=== PATIENT | female | born 1965 | race Caucasian/White ===

== ENCOUNTER → 2016-06-20 | Outpatient (CLI) | payer OTHER ==
[~2016-06-20] MED LIST: CALC-157 PO
--- NOTE | 2016-06-20 15:28 | RAD ---
Indication: Neck and peroneal pain. Time of exam 1335 hours. Femoral acetabular alignment is normal bilaterally. The femoral heads and necks are intact. No fractures are seen. Old fracture deformities of the pubic rami are noted. SI joints and symphysis are nonwidened. Impression: Chronic changes. No acute abnormality is detected.
== END | disposition home or self-care (01) ==
LOC: DXRAD 14:23
PROVIDERS: ATTEND Family Medicine
DX: R10.2 Pelvic and perineal pain (principal)
CPT/HCPCS: 72170

== ENCOUNTER → 2016-10-23 | Outpatient (CLI) | payer OTHER ==
[2016-10-23 06:39] LABS: BASO % 0 % (0-3); EOS # 0.1 x10^3/uL (0.0-0.7); EOS % 2 % (0-3); HEMATOCRIT 42.8 % (36.0-47.0); HEMOGLOBIN 14.7 g/dL (12.0-15.5); LYMPH # 1.5 x10^3/uL (1.0-4.8); LYMPH % 34 % (24-48); MEAN CORPUSCULAR HEMOGLOBIN 29 pg (25-35); MEAN CORPUSCULAR HGB CONC 34 g/dL (31-37); MEAN CORPUSCULAR VOLUME 85 fL (79-100); MONO # 0.4 x10^3/uL (0.0-1.1); MONO % 8 % (0-9); NEUT # 2.5 x10^3uL (1.8-7.7); NEUT % 56 % (31-73); PLATELET COUNT 226 x10^3/uL (140-400); RED BLOOD COUNT 5.06 x10^6/uL (3.50-5.40); RED CELL DISTRIBUTION WIDTH 13.3 % (11.5-14.5); WHITE BLOOD COUNT 4.5 x10^3/uL (4.0-11.0)
[2016-10-23 07:04] LABS: ALBUMIN 4.2 g/dL (3.4-5.0); ALBUMIN/GLOBULIN RATIO 1.1 (1.0-1.7); CALCIUM 9.3 mg/dL (8.5-10.1); CREATININE 0.8 mg/dL (0.6-1.0); POTASSIUM 3.8 mmol/L (3.5-5.1); TOTAL BILIRUBIN 0.8 mg/dL (0.2-1.0)
[2016-10-23 14:29] LABS: FREE T4 1.02 ng/dL (0.76-1.46); THYROID STIM HORMONE (TSH) 3.415 uIU/mL (0.358-3.740)
== END | disposition home or self-care (01) ==
LOC: LAB 06:14
PROVIDERS: ATTEND Family Medicine
DX: R53.83 Other fatigue (principal)
CPT/HCPCS: 36415; 80053; 80061; 82306; 84439; 84443; 85025

== ENCOUNTER → 2017-04-17 | Outpatient (CLI) | payer OTHER ==
--- NOTE | 2017-04-17 17:45 | RAD ---
Thyroid sonography Clinical indications: Multinodular goiter. Comparison: March 12, 2016. Findings: The longitudinal and AP and transverse dimensions of the right lobe are 6.7 cm and 2.5 cm and 3.0 cm respectively. There is a complex cystic and solid nodule within the lower pole which measures 2.9 cm in greatest dimension. It measured 2.3 cm in greatest dimension on the previous study. There is a complex cystic and solid nodule within the mid aspect which measures 1.5 cm in size. It measured 1.1 cm previously. The longitudinal and AP and transverse dimensions of the left lobe are 5.8 cm and 2.4 cm and 2.9 cm respectively. On the left side, a complex cystic and solid nodule is seen within the superior pole measuring 1.3 cm. It measured 1.4 cm previously. There is a solid nodule anteriorly within the mid aspect which measures 1.6 cm. It measured 1.5 cm previously. There is a solid nodule within the lower pole which measures 1.6 cm. It measured 1.6 cm previously. The isthmus measures 8 mm in thickness. There is a small solid nodule within the left side isthmus which measures 1.0 cm. It measured 0.8 cm previously. IMPRESSION: Multinodular goiter.
== END | disposition home or self-care (01) ==
LOC: US 07:58
PROVIDERS: ATTEND Surgery
DX: E04.2 Nontoxic multinodular goiter (principal)
CPT/HCPCS: 76536

== ENCOUNTER → 2017-09-12 | Outpatient (CLI) | payer OTHER ==
[~2017-09-12] MED LIST changes: +IOHEXOL 240 MG/ML 50ML VIAL. ONE
== END | disposition home or self-care (01) ==
LOC: PMG 10:43
PROVIDERS: ATTEND Family Medicine
DX: R53.82 Chronic fatigue, unspecified (principal); Z86.2 Personal history of diseases of the blood and blood-forming organs and certain disorders involving the immune mechanism
CPT/HCPCS: 84443; Q9966

== ENCOUNTER → 2017-09-12 | Outpatient (CLI) | payer OTHER ==
[~2017-09-12] MED LIST changes: -IOHEXOL 240 MG/ML 50ML VIAL. ONE; +IOHEXOL 240 MG/ML 50ML VIAL. PO ONE; +IOHEXOL 300 MG/ML 75 ML VIAL. IV ONE
--- NOTE | 2017-09-12 12:10 | RAD ---
EXAM: Abdomen and pelvis CT with intravenous contrast. HISTORY: Right lower quadrant pain. TECHNIQUE: Computed tomographic images of the abdomen and pelvis were obtained following the administration of 75 cc Isovue-370 intravenous contrast. Multiplanar reformatting was performed. *One or more of the following individualized dose reduction techniques were utilized for this examination: 1. Automated exposure control. 2. Adjustment of the mA and/or kV according to patient size. 3. Use of iterative reconstruction technique. COMPARISON: None. FINDINGS: Evaluation of the lower thorax demonstrates posterior dependent atelectasis. The heart is normal in size. No suspicious hepatic lesion is seen. The gallbladder, pancreas, spleen and adrenal glands are unremarkable. There is a 1.5 cm cyst within the upper pole the left kidney. There are prominent renal pelves, possibly due to pelviectasis or extrarenal pelvis. There is no evidence of obstructive uropathy. There is no appendicitis. There is no bowel obstruction. There is moderate colonic stool. There is rectal wall thickening likely due to relative under distention. There are a few distal colonic diverticula. The uterus is surgically absent. The bladder is unremarkable. There is no lymphadenopathy. There is a posterior left abdominal wall hernia containing fat. The hernia sac measures approximately 5.5 cm. There is a small fat-containing umbilical hernia. The hernia sac measures 2.3 cm. There is chronic fracture deformities involving the right sacrum and right L5 transverse process, anterior left iliac bone and bilateral pubic rami. There is mild scoliosis. There is no suspicious osseous lesion. IMPRESSION: 1. No acute abdominal or pelvic finding. 2. Small left renal cyst and suspected extrarenal pelves. There is no obstructive uropathy. 3. Distal colonic diverticulosis. There is moderate colonic stool. 4. Fat-containing posterior left ventral abdominal wall hernia and small fat-containing umbilical hernia. 5. Chronic pelvic fracture deformities. Electronically signed by: Tara Herron MD (09/12/2017 12:06 PM) [facility]
== END | disposition home or self-care (01) ==
LOC: CT 10:35
PROVIDERS: ATTEND Family Medicine
DX: K57.30 Diverticulosis of large intestine without perforation or abscess without bleeding (principal); K42.9 Umbilical hernia without obstruction or gangrene; M95.5 Acquired deformity of pelvis; M41.86 Other forms of scoliosis, lumbar region; Z86.2 Personal history of diseases of the blood and blood-forming organs and certain disorders involving the immune mechanism
CPT/HCPCS: 74177; Q9967

== ENCOUNTER → 2017-11-19 | Outpatient (CLI) | payer OTHER ==
[~2017-11-19] MED LIST changes: -IOHEXOL 240 MG/ML 50ML VIAL. PO ONE; -IOHEXOL 300 MG/ML 75 ML VIAL. IV ONE
== END | disposition home or self-care (01) ==
LOC: LAB 06:25
DX: E04.2 Nontoxic multinodular goiter (principal)
CPT/HCPCS: 36415; 86800

== ENCOUNTER → 2017-12-01 | Outpatient (CLI) | payer OTHER ==
--- NOTE | 2017-12-01 16:13 | RAD ---
Left elbow, 3 views, 12/01/2017: HISTORY: Elbow pain No fracture or dislocation is identified. No significant arthritic change is seen. No joint effusion is evident. IMPRESSION: No significant left elbow abnormality is detected. Electronically signed by: Logan Villarreal MD (12/01/2017 4:10 PM) [facility]
== END | disposition home or self-care (01) ==
LOC: RAD 14:51
PROVIDERS: ATTEND Neuromusculoskeletal Medicine & OMM
DX: S50.02XA Contusion of left elbow, initial encounter (principal); X58.XXXA Exposure to other specified factors, initial encounter; Y93.89 Activity, other specified; Y92.89 Other specified places as the place of occurrence of the external cause; Y99.2 Volunteer activity
CPT/HCPCS: 73080

== ENCOUNTER → 2018-08-28 | Outpatient (CLI) | payer OTHER ==
--- NOTE | 2018-08-28 16:28 | RAD ---
Indication: Increasing neck pain TECHNIQUE: 4 views of the cervical spine COMPARISON: None FINDINGS/ impression: Loss of normal cervical lordosis may be secondary to positioning or muscle spasm. Atlantoaxial joint interval is preserved. No compression deformity. Facet joints are in normal anatomic alignment with mild facet arthropathy. Prevertebral soft tissues are within normal limits. Mild degenerative disc disease at C3-C6. Visualized lung apices are clear. Electronically signed by: Harry Sen DO (08/28/2018 4:25 PM) [facility]
== END | disposition home or self-care (01) ==
LOC: PMG 15:57
PROVIDERS: ATTEND Family Medicine
DX: M50.31 Other cervical disc degeneration, high cervical region (principal); M12.88 Other specific arthropathies, not elsewhere classified, other specified site
CPT/HCPCS: 72040

== ENCOUNTER → 2018-08-31 | Outpatient (CLI) | payer OTHER ==
[2018-08-31 06:19] LABS: BASO % 0 % (0-3); EOS # 0.1 x10^3/uL (0.0-0.7); EOS % 2 % (0-3); HEMATOCRIT 42.6 % (36.0-47.0); HEMOGLOBIN 14.4 g/dL (12.0-15.5); LYMPH # 1.7 x10^3/uL (1.0-4.8); LYMPH % 32 % (24-48); MEAN CORPUSCULAR HEMOGLOBIN 29 pg (25-35); MEAN CORPUSCULAR HGB CONC 34 g/dL (31-37); MEAN CORPUSCULAR VOLUME 86 fL (79-100); MONO # 0.4 x10^3/uL (0.0-1.1); MONO % 8 % (0-9); NEUT # 3.1 x10^3uL (1.8-7.7); NEUT % 57 % (31-73); PLATELET COUNT 239 x10^3/uL (140-400); RED BLOOD COUNT 4.95 x10^6/uL (3.50-5.40); RED CELL DISTRIBUTION WIDTH 13.5 % (11.5-14.5); WHITE BLOOD COUNT 5.3 x10^3/uL (4.0-11.0)
[2018-08-31 06:43] LABS: ALBUMIN 3.9 g/dL (3.4-5.0); CALCIUM 9.2 mg/dL (8.5-10.1); CREATININE 0.8 mg/dL (0.6-1.0); GFR 74.5; TOTAL BILIRUBIN 0.6 mg/dL (0.2-1.0); TOTAL PROTEIN 7.7 g/dL (6.4-8.2)
[2018-08-31 06:44] LABS: POTASSIUM 3.8 mmol/L (3.5-5.1)
[2018-08-31 13:59] LABS: THYROID STIM HORMONE (TSH) 3.943 uIU/mL (0.358-3.740)
== END | disposition home or self-care (01) ==
LOC: LAB 05:54
PROVIDERS: ATTEND Family Medicine
DX: R53.82 Chronic fatigue, unspecified (principal)
CPT/HCPCS: 36415; 80053; 80061; 84443; 85025

== ENCOUNTER → 2019-02-25 | Outpatient (CLI) | payer OTHER ==
--- NOTE | 2019-02-25 16:27 | RAD ---
EXAM: Right elbow, 2 views. HISTORY: Pain. COMPARISON: 12/01/2017 FINDINGS: 2 views of the right elbow are obtained. There is no fracture, dislocation or subluxation. No elbow effusion is seen. IMPRESSION: No acute osseous finding. Electronically signed by: Tara Herron MD (02/25/2019 4:24 PM) [facility]
== END | disposition home or self-care (01) ==
LOC: DXRAD 16:02
PROVIDERS: ATTEND Family Medicine
DX: M25.521 Pain in right elbow (principal)
CPT/HCPCS: 73070

== ENCOUNTER → 2019-09-28 | Outpatient (CLI) | payer OTHER ==
[2019-09-28 16:46] LABS: BASO % 0 % (0-3); EOS # 0.1 x10^3/uL (0.0-0.7); EOS % 2 % (0-3); HEMATOCRIT 41.9 % (36.0-47.0); HEMOGLOBIN 14.1 g/dL (12.0-15.5); LYMPH % 32 % (24-48); MEAN CORPUSCULAR HEMOGLOBIN 29 pg (25-35); MEAN CORPUSCULAR HGB CONC 34 g/dL (31-37); MEAN CORPUSCULAR VOLUME 87 fL (79-100); MONO # 0.5 x10^3/uL (0.0-1.1); MONO % 8 % (0-9); NEUT # 3.5 x10^3uL (1.8-7.7); NEUT % 57 % (31-73); PLATELET COUNT 220 x10^3/uL (140-400); RED BLOOD COUNT 4.81 x10^6/uL (3.50-5.40); RED CELL DISTRIBUTION WIDTH 13.8 % (11.5-14.5); WHITE BLOOD COUNT 6.1 x10^3/uL (4.0-11.0)
[2019-09-28 17:03] LABS: ALBUMIN 3.8 g/dL (3.4-5.0); CALCIUM 8.9 mg/dL (8.5-10.1); GFR 57.4; POTASSIUM 3.8 mmol/L (3.5-5.1); TOTAL BILIRUBIN 0.3 mg/dL (0.2-1.0); TOTAL PROTEIN 7.7 g/dL (6.4-8.2)
[2019-09-30 14:07] LABS: H PYLORI IGA <9.0 units (0.0-8.9); H PYLORI IGM <9.0 units (0.0-8.9)
== END | disposition home or self-care (01) ==
LOC: LAB 16:10
PROVIDERS: ATTEND Family Medicine
DX: K52.9 Noninfective gastroenteritis and colitis, unspecified (principal)
CPT/HCPCS: 36415; 80053; 82306; 82607; 84443; 85025; 86677

== ENCOUNTER → 2020-04-12 | Outpatient (CLI) | payer OTHER | LOC: LAB 11:06 | PROVIDERS: ATTEND Family Medicine | DX: E03.9 Hypothyroidism, unspecified (principal) | CPT/HCPCS: 84443 ==

== ENCOUNTER → 2020-06-30 | Outpatient (CLI) | payer OTHER ==
[2020-06-30] MEDS: IOHEXOL 300 MG/ML 75 ML VIAL. IV ONE (12:58)
[2020-06-30] MEDS: IOHEXOL 240 MG/ML 50ML VIAL. PO ONE (12:59)
--- NOTE | 2020-06-30 13:14 | RAD ---
PQRS Compliance Statement: One or more of the following individualized dose reduction techniques were utilized for this examinat ion: 1. Automated exposure control 2. Adjustment of the mA and/or kV according to patient size 3. Use of iterative reconstruction technique CT abdomen/pelvis with contrast 06/30/2020 12:49 PM INDICATION: Abdominal pain COMPARISON: CT abdomen/pelvis 09/12/2017 TECHNIQUE: Multiple axial CT images of the abdomen and pelvis were obtained after the intravenous adm inistration of nonionic contrast. Coronal and sagittal reformats are provided. FINDINGS: Lung bases are clear. Heart size within normal limits. Mild hypoattenuation the hepatic parenchyma carson ggestive of hepatic steatosis. Gallbladder surgically absent. Spleen, adrenal glands, pancreas and ki dneys are normal. No hydronephrosis or suspicious renal mass. Simple cyst in the superior pole the le ft kidney measures 10 mm. No calculi within the ureters or bladder. Urinary bladder within normal yao its given degree of distention. Oral contrast was administered. Opacified bowel loops demonstrate nor mal mucosal fold pattern. Small and large bowel are normal in caliber. There is no evidence for bowel obstruction. There are no pericolonic inflammatory changes. A normal, nondilated appendix is visuali zed without adjacent inflammatory changes. Mild diverticulosis no suspicious pelvic mass. Hysterectom y changes. There is remodeling of the right sacroiliac joint, right superior and inferior pubic rami from remote trauma. IMPRESSION: No acute abnormality identified in abdomen and pelvis. Electronically signed by: Padmini Hare MD (06/30/2020 1:12 PM) [id number]
== END ==
LOC: CT 11:40
PROVIDERS: ATTEND Nurse Practitioner Family
DX: K57.30 Diverticulosis of large intestine without perforation or abscess without bleeding (principal); Z90.49 Acquired absence of other specified parts of digestive tract
CPT/HCPCS: 74177; Q9966; Q9967

== ENCOUNTER → 2021-01-31 | Outpatient (CLI) | payer OTHER ==
--- NOTE | 2021-02-01 11:31 | RAD ---
INDICATION: 55 years of age asymptomatic female patient presents for screening mammography. Screening TECHNIQUE: Full field craniocaudal and mediolateral oblique images of both breasts were obtained usi ng digital technique with tomosynthesis and also analyzed with computer-aided detection software. . COMPARISON: 07/15/2014 .. BREAST COMPOSITION: Category B: There are scattered fibroglandular densities. FINDINGS: There are scattered circumscribed nodules throughout both breasts, unchanged from prior study. No vivi picious mass or clustered microcalcification. No architectural distortion. IMPRESSION: Stable bilateral mammogram RECOMMENDATION: Annual screening mammography is recommended, unless clinically indicated sooner based on symptoms or change in physical exam. BIRADS 2: BENIGN This study was interpreted with the benefit of Computerized Aided Detection (CAD). Recommend routine screening in one year. Patient information is entered into the reminder system with a target due date for the next screening mammogram. Mammography is the most sensitive method for finding small breast cancers, but it does not detect the m all and is not a substitute for careful clinical examination. A negative mammogram does not negate a clinically suspicious finding and should not result in delay in biopsying a clinically suspicious a bnormality. "Our facility is accredited by the [employer] Mammography Program." Electronically signed by: Shashi Norman MD (02/01/2021 11:29 AM) [id number]
== END ==
LOC: MAMMO 15:12
PROVIDERS: ATTEND Family Medicine
DX: Z12.31 Encounter for screening mammogram for malignant neoplasm of breast (principal)
CPT/HCPCS: 77063; 77067